=== PATIENT | female | born 1995 | race African-American/Black ===

== ENCOUNTER 2016-08-23 17:25 | Emergency (ER) | payer MEDICAID ==
[~2016-08-23] VITALS: Ht 160 cm; Wt 75.9 kg
[~2016-08-23 17:25] MED LIST: FERROUS SULFATE
[2016-08-23 19:04] LABS: BASOPHILS % 0.2 % (0.0-2.0); EOSINOPHILS % 1.2 % (0.0-5.0); HEMATOCRIT. 23.7 % (36.0-48.0); HEMOGLOBIN. 7.4 g/dL (12.0-16.0); LYMPHOCYTES % 14.1 % (20.0-50.0); MEAN CORPUSCULAR HEMOGLOBIN 19.1 pg (28.0-32.0); MEAN CORPUSCULAR HGB CONC 31.1 g/dL (31.0-37.0); MEAN CORPUSCULAR VOLUME 61.5 fL (81.0-99.0); MEAN PLATELET VOLUME 8.6 fl (7.4-10.4); NEUTROPHILS % 77.5 % (40.0-76.0); PLATELET 248 x1000/uL (130-400); RED BLOOD CELL COUNT 3.85 mill/uL (4.2-5.4); WHITE BLOOD COUNT 9.4 x1000/uL (4.5-11.0)
[2016-08-23 19:07] LABS: ADD RBC MORPHOLOGY YES; DIFFERENTIAL COMMENT 1
[2016-08-23 19:08] LABS: CHLORIDE 106 mEq/L (98-107); INDEX HEMOLYSI 1 (1-3); INDEX ICTERIC 1 (1-4); INDEX LIPEMIC 1 (1-3)
[2016-08-23 19:19] LABS: ANION GAP 13; CALCIUM 7.8 mg/dL (8.5-10.1); CARBON DIOXIDE 24 mEq/L (21-32); UREA NITROGEN BLOOD 5 mg/dL (7-21); eGFR > 60 mL/min (>60)
[2016-08-23 19:31] LABS: B-HCG QUANTITATIVE 1204 mIU/mL (<3)
[2016-08-23 19:34] LABS: CLARITY URINE CLEAR (CLEAR); COLOR URINE YELLOW (YELLOW); GLUCOSE URINE NEGATIVE (NEGATIVE); KETONES URINE NEGATIVE (NEGATIVE); LEUKOCYTE ESTERASE URINE 3+ (NEGATIVE); NITRITE URINE NEGATIVE (NEGATIVE); OCCULT BLOOD URINE TRACE (NEGATIVE); PROTEIN URINE NEGATIVE (NEGATIVE); SPECIFIC GRAVITY URINE 1.017 (1.005-1.030)
[2016-08-23 19:40] LABS: PLATELET ESTIMATE NORMAL
[2016-08-23 19:41] LABS: HYPOCHROMASIA 2+
[2016-08-23] MEDS ORDERED: SODIUM CHLORIDE 0.9% 1,000 ML IV ONE (20:30)
[2016-08-23 20:37] LABS: RBC URINE 0-2 /hpf (0-2); SQUAMOUS EPITHELIAL CELL URINE 1+ /lpf (RARE/1+)
[2016-08-23 20:38] LABS: BACTERIA URINE 2+
[2016-08-23 20:46] VITALS: BP 103/57
== END 2016-08-23 22:05 | disposition home or self-care (01) ==
LOC: ER 18:00
DX: O99.013 Anemia complicating pregnancy, third trimester (principal); D64.9 Anemia, unspecified; O23.43 Unspecified infection of urinary tract in pregnancy, third trimester; N39.0 Urinary tract infection, site not specified; Z3A.29 29 weeks gestation of pregnancy
CPT/HCPCS: 36415; 76805; 80048; 81001; 81025; 84702; 85025; 86850; 86900; 96360; 99285; J7030

== ENCOUNTER 2018-08-07 07:44 | Emergency (ER) | payer MEDICAID ==
[~2018-08-07] VITALS: Ht 170.2 cm; Wt 77.0 kg
[2018-08-07 08:14] LABS: CLARITY URINE CLEAR (CLEAR); COLOR URINE YELLOW (YELLOW); KETONES URINE NEGATIVE (NEGATIVE); LEUKOCYTE ESTERASE URINE 2+ (NEGATIVE); NITRITE URINE NEGATIVE (NEGATIVE); OCCULT BLOOD URINE NEGATIVE (NEGATIVE); PROTEIN URINE NEGATIVE (NEGATIVE); SPECIFIC GRAVITY URINE 1.018 (1.005-1.030)
[2018-08-07] MEDS ORDERED: SODIUM CHLORIDE 0.9% 1,000 ML IV ONE (10:20)
[2018-08-07] MEDS ORDERED: CEFTRIAXONE 1 G PREMIX 50 ML IV ONE (10:30)
[2018-08-07] MEDS ORDERED: KETOROLAC 30MG/ML VIAL IV ONE (10:30)
[2018-08-07] MEDS ORDERED: ONDANSETRON HCL 4MG/2ML INJ IV ONE (10:30)
[2018-08-07 12:01] VITALS: BP 96/56
== END 2018-08-07 12:15 | disposition home or self-care (01) ==
LOC: ER 07:44
DX: N39.0 Urinary tract infection, site not specified (principal); R05 Cough; R19.7 Diarrhea, unspecified; Z79.899 Other long term (current) drug therapy
CPT/HCPCS: 81003; 81025; 96374; 96375; 99283; J0696; J1885; J2405; J7030

== ENCOUNTER 2022-04-26 22:06 | Emergency (ER) | payer MEDICAID ==
[~2022-04-26] VITALS: Ht 160 cm; Wt 78.0 kg
[2022-04-26 22:45] VITALS: BP 128/74
[2022-04-27 00:54] LABS: BASOPHILS % 0.8 % (0.0-2.0); EOSINOPHILS % 4.6 % (0.0-5.0); HEMATOCRIT. 31.2 % (36.0-48.0); HEMOGLOBIN. 9.7 g/dL (12.0-16.0); LYMPHOCYTES % 34.2 % (20.0-50.0); MEAN CORPUSCULAR HEMOGLOBIN 20.4 pg (28.0-32.0); MEAN CORPUSCULAR VOLUME 65.5 fL (81.0-99.0); MONOCYTES % 8.6 % (2.0-8.0); NEUTROPHILS % 51.8 % (40.0-76.0); PLATELET 322 x1000/uL (130-400); RED BLOOD CELL COUNT 4.77 mill/uL (4.2-5.4); RED CELL DISTRIBUTION WIDTH 16.7 % (11.6-14.6)
[2022-04-27 01:26] LABS: CHLORIDE 106 mEq/L (98-107)
[2022-04-27 01:36] LABS: B-HCG QUANTITATIVE < 1 mIU/mL (<3)
[2022-04-27 01:51] LABS: CLARITY URINE CLEAR (CLEAR); COLOR URINE YELLOW (YELLOW); KETONES URINE NEGATIVE (NEGATIVE); LEUKOCYTE ESTERASE URINE NEGATIVE (NEGATIVE); NITRITE URINE NEGATIVE (NEGATIVE); OCCULT BLOOD URINE NEGATIVE (NEGATIVE); PROTEIN URINE NEGATIVE (NEGATIVE); SPECIFIC GRAVITY URINE 1.023 (1.005-1.030)
[2022-04-27 07:10] LABS: PLATELET ESTIMATE NORMAL
== END 2022-04-27 02:05 | disposition home or self-care (01) ==
LOC: ER 22:06
DX: N93.8 Other specified abnormal uterine and vaginal bleeding (principal)
CPT/HCPCS: 36415; 76830; 76856; 80053; 81003; 81025; 84702; 85025; 86850; 86900; 99284